=== PATIENT | female | born 1995 | race African-American/Black ===

== ENCOUNTER 2021-06-25 20:41 | Observation (INO) | payer BC ==
[~2021-06-25] VITALS: Ht 170.2 cm; Wt 114.3 kg
== END 2021-06-25 22:45 | disposition home or self-care (01) ==
LOC: SPU 20:41
PROVIDERS: ADMIT Specialist; ATTEND Specialist
DX: O34.63 Maternal care for abnormality of vagina, third trimester (principal); N89.8 Other specified noninflammatory disorders of vagina; O62.9 Abnormality of forces of labor, unspecified; Z3A.39 39 weeks gestation of pregnancy; Z88.0 Allergy status to penicillin
CPT/HCPCS: 81002; G0378